=== PATIENT | female | born 1960 | race Caucasian/White ===

== ENCOUNTER → 2019-03-07 06:57 | Outpatient (CLI) | payer OTHER, SELFPAY ==
[2019-03-07 08:25] LABS: Hemoglobin A1C% w Est Avg Glu 5.6 % (4.0-6.0)
[2019-03-07 08:45] LABS: Alanine Aminotransferase 33 IU/L (9-52); Albumin 4.4 g/dL (3.5-5.0); Albumin Globulin Ratio 1.6 (1.0-2.8); Alkaline Phosphatase 89 U/L (38-126); Aspartate Aminotransferase 23 IU/L (14-36); BUN Creatinine Ratio 22.5 (6-22); Bilirubin Total 0.6 mg/dL (0.2-1.3); Blood Urea Nitrogen 18 mg/dL (7-17); Calcium 9.7 mg/dL (8.4-10.2); Carbon Dioxide 32 mmol/L (22-32); Chloride 98 mmol/L (98-107); Cholesterol 249 mg/dL (140-199); Estimated Glomerular Filt Rate > 60.0 mL/min (>60); Globulin 2.8 g/dL (1.7-4.1); Glucose 98 mg/dL (70-100); HDL Cholesterol 39 mg/dL (40-60); HEMOLYSIS < 15 (0-50); LDL Cholesterol Calculated 142 mg/dL (<100); Potassium 3.8 mmol/L (3.4-5.1); Sodium 137 mmol/L (137-145); Total Protein 7.2 g/dL (6.3-8.2); Triglycerides 342 mg/dL (35-150)
== END ==
PROVIDERS: Visit Provider Physician Assistant Medical
DX: I10 Essential (primary) hypertension (principal)
CPT/HCPCS: 36415; 80053; 80061; 83036

== ENCOUNTER → 2019-11-14 07:07 | Outpatient (CLI) | payer OTHER, SELFPAY ==
--- NOTE | 2019-11-14 | DI.US.S_ITS ---
PROCEDURE: US PELVIC COMPLETE INDICATIONS: PMB TECHNIQUE: Real-time scanning was performed of the pelvic organs, with image documentation. Additional endovaginal scanning was necessary due to incomplete visualization of the adnexal and endometrial structures by transabdominal scanning. COMPARISON: None. FINDINGS: Transabdominal scanning: Limited scanning through the kidneys shows no hydronephrosis. No pathologic free abdominal or pelvic fluid. Endovaginal scanning: Uterus: Uterus measures 6.7 x 5.1 x 8.3 cm. The endometrium measures 6 mm in combined thickness. Multiple uterine fibroids are identified. There is a 3.1 x 3.1 x 3.9 cm intramural fibroid identified in the right side of the anterior uterus. There is a 2.4 x 1.8 x 2.6 cm intramural fibroid noted over the right side of the anterior uterus. There is also a 3.9 x 3.5 x 4.2 cm intramural fibroid seen over the left side of the anterior uterus. Visualized cervix is unremarkable. Ovaries: The ovaries are not visualized on this study. IMPRESSION: 1. Mildly thickened endometrium measuring 6 mm in thickness. For this postmenopausal patient with abnormal bleeding, consider further evaluation with endometrial biopsy. 2. Multiple intrauterine fibroids with the largest measuring up to 4.2 cm in diameter. 3. Nonvisualization of the ovaries on today's study. Dictated by: Bhavik Navarro M.D. on 11/14/2019 at 22:11 Approved by: Bhavik Navarro M.D. on 11/14/2019 at 22:17
== END ==
PROVIDERS: PCP Physician Assistant Medical; Visit Provider Physician Assistant Medical
DX: N95.0 Postmenopausal bleeding (principal); D25.1 Intramural leiomyoma of uterus; R93.89 Abnormal findings on diagnostic imaging of other specified body structures
CPT/HCPCS: 76830; 76856

== ENCOUNTER → 2019-12-11 07:12 | Outpatient (CLI) | payer OTHER, SELFPAY | PROVIDERS: PCP Physician Assistant Medical; Referring Provider Physician Assistant Medical; Visit Provider Physician Assistant Medical | DX: M54.32 Sciatica, left side (principal); Z53.9 Procedure and treatment not carried out, unspecified reason ==

== ENCOUNTER → 2019-12-12 06:51 | Outpatient (CLI) | payer OTHER, SELFPAY ==
--- NOTE | 2019-12-12 | DI.MRI.S_ITS ---
PROCEDURE: MR LUMBAR SPINE WO/W CON INDICATIONS: Sciatica, left side TECHNIQUE: Noncontrast sagittal T1 spin echo and T2 fast spin echo, sagittal STIR, axial T1 and T2 fast spin echo through the lumbar spine. In cases with scoliosis, additional coronal T2 fast spin echo may be performed. After the administration of contrast, sagittal and axial T1 spin echo with fat saturation through the lumbar spine. COMPARISON: None. FINDINGS: Image quality: Excellent. Alignment and curvature: Grade 1/2 anterolisthesis of L5 on S1. Grade 1 retrolisthesis of L2 on L3, and L3 on L4. Marrow: Chronic L5 bilateral pars defects. No acute vertebral body compression fractures. No suspicious marrow enhancement. Spinal cord: Conus medullaris terminates at the L1 level. Visualized spinal cord demonstrates normal signal, without suspicious enhancement. Paraspinous soft tissues: No paravertebral masses or abnormal enhancement. L1-L2: No high-grade canal stenosis, or lateral recess narrowing. No foraminal stenoses bilaterally L2-L3: Mild central canal narrowing. Small left paracentral disc protrusion measuring 3 mm image 15/5.Partial effacement of both lateral recesses with mildly asymmetric appearance, left greater than right. Mild-moderate left and mild right foraminal stenoses. L3-L4: Mild/moderate central canal stenosis. Partial effacement of both lateral recesses with asymmetric appearance, right greater than left. Mild/moderate left foraminal narrowing with slight nerve root compression. Mild right foraminal stenosis L4-L5: Mild central canal narrowing. Partial effacement of both lateral recesses with bilaterally symmetric appearance. [id number] right foraminal stenosis with slight nerve root compression. Mild left foraminal narrowing with slight nerve root compression. L5-S1: Moderate central canal narrowing. Partial effacement of both lateral recesses with bilaterally symmetric appearance. Severe right foraminal stenosis with nerve root compression. Severe left foraminal stenosis with nerve root compression. IMPRESSION: Chronic bilateral L5 pars defects grade 1/2 anterolisthesis of L5 on S1. Severe bilateral foraminal stenoses at L5-S1. Additional diffuse lesser bilateral foraminal stenoses as detailed above by spinal level Bilateral subarticular narrowing at L2-L3 and L3-L4, mildly asymmetric left slightly greater than right at L2-L3, and left greater than right at L3-L4 level. No abnormal enhancement identified. Dictated by: Abimael Huffman M.D. on 12/12/2019 at 9:59 Approved by: Abimael Huffman M.D. on 12/12/2019 at 10:10
== END ==
PROVIDERS: PCP Physician Assistant Medical; Referring Provider Physician Assistant Medical; Visit Provider Physician Assistant Medical
DX: M54.32 Sciatica, left side (principal); M43.16 Spondylolisthesis, lumbar region; M48.061 Spinal stenosis, lumbar region without neurogenic claudication; M48.07 Spinal stenosis, lumbosacral region
CPT/HCPCS: 72158; A9579

== ENCOUNTER → 2025-07-08 15:25 | Outpatient (CLI) | payer OTHER, SELFPAY ==
--- NOTE | 2025-07-15 13:34 | DIET.OUTPTC ---
Dietary Outpatient Consult Consult Date:07/08/25 Assessment:?64 y F referred to dietitian for pre-diabetes and hypertension Presents wanting to learn more about how much carbs to eat and improving bowel movements. Started metformin 500 mg daily and experienced a change in BMs. Pt reports never feeling hungry, will feel overly full after meals sometimes. GI symptoms: constipation Diet Recall: 7am B- 2 eggs, 2 pieces turkey bhat or 2 reduced fat pork sausage OR avocado with eggs 1030-11am snack- cottage cheese 1/2 c with 1 cup canned fruit (drained and in fruit juice) noon- meal at work ex: turkey, green beans, mashed potatoes, dinner roll 3pm snack-slovenian yogurt (Ok[place] or plain) with frozen blueberries 6pm dinner-leftovers OR sandwich w deli meat and cream cheese OR salmon burger, dinners with fresh veggies and starch with butter; cooks with avocado oil and chooses lean poultry most days post dinner snack-yogurt and blueberries, crackers and cheese, or fruit (grapes/apples) bed 10pm Fluids:water or spenddrift, 1 c black coffee Wt:?11.6 kg? BMI:?37.4? Activity:not discussed at this visit Pertinent Labs:5.9% A1c Nutrition Diagnosis:? Excessive carbohydrate intake r/t food and nutrition related knowledge deficit, difficulty assessing hunger/fullness cues aeb diet recall with lunch and dinner >45 g CHO and pt reporting over eating past point of fullness Interventions:? This participant was very receptive. Provided appropriate educational handouts. Discussed the following topics: Completed intake assessment. Discussed barriers to care. HgA1c, its correlation to blood glucose numbers Plate Method, impact of macronutrients on blood sugar, meal timing, carbohydrate counting, pairing macronutrients and spreading out carbohydrates for better blood glucose management Recommended servings for carbohydrates at meals and snacks Heart health nutrition in terms of reducing saturated fats Brainstormed appropriate meal plan based on food preferences Label reading for carbs, added sugars, fiber and saturated fats Handout on higher fiber switches and amount of fiber in food Created SMART goals for patient self-care and success. Goals: -Use the hunger fullness scale to prevent over eating before and during meals/snacks - especially assessing after dinner, before night time snack -Whole grain carb for dinner starch -Portion lunch and dinners to 30-45 g CHO -Stop using butter in veggies at dinner EER:? 9-11 CHO servings/day; 30-45 g CHO at meals, 15-30 g at snacks Monitoring/Evaluations:? F/u in 1 m Electronically Signed by: Sarah White Clinical Dietitian [address] [id number]
== END ==
LOC: DIET 15:26
PROVIDERS: PCP Physician Assistant; Referring Provider Student in an Organized Health Care Education/Training Program
DX: R73.03 Prediabetes (principal); I10 Essential (primary) hypertension; Z79.84 Long term (current) use of oral hypoglycemic drugs; K59.00 Constipation, unspecified; Z68.37 Body mass index [BMI] 37.0-37.9, adult
CPT/HCPCS: 97802

== ENCOUNTER → 2025-08-11 07:10 | Outpatient (CLI) | payer OTHER, SELFPAY ==
--- NOTE | 2025-08-11 07:12 | DI.US.S_ITS ---
PROCEDURE: US PERIPH VENOUS LOW EXTREM RT INDICATIONS: R/O DVT TECHNIQUE: Real-time imaging, as well as color and pulse Doppler interrogation, were performed of the lower extremity deep veins from the inguinal ligament to the popliteal fossa, with documentation of the visualized calf veins. COMPARISON: None. FINDINGS: The common femoral, femoral, popliteal, and the visualized calf veins are normally compressible, and free of intraluminal thrombus. Color and pulse Doppler demonstrate normal phasic intraluminal flow. There is normal augmentation response to distal compression maneuver. IMPRESSION: No findings of lower extremity deep venous thrombosis. Dictated by: Bhavik Navarro M.D. on 08/11/2025 at 7:57 Approved by: Bhavik Navarro M.D. on 08/11/2025 at 7:57
== END ==
LOC: US 07:10
PROVIDERS: PCP Student in an Organized Health Care Education/Training Program; Referring Provider Student in an Organized Health Care Education/Training Program; Visit Provider Nurse Practitioner Family
DX: M79.606 Pain in leg, unspecified (principal)
CPT/HCPCS: 93971

== ENCOUNTER → 2025-08-20 13:52 | Outpatient (CLI) | payer OTHER, SELFPAY ==
--- NOTE | 2025-08-20 15:43 | DIET.OUTPTC ---
Dietary Outpatient Consult Consult Date:08/20/25 Assessment:?64 y F referred to dietitian for pre-diabetes and hypertension Reports choosing lower carb options and reducing carb portions (ex- ceron peppers over bread on sandwich, working to measure or assess CHO level at dinners). Has been working on portioning to not feel overly full after meals. Reports improvement in constipation and regular BMs again. Would like to review CHO portioning again at meals, find resources for recipes, and potential track food. Getting A1c checked [id number] per PCP. Diet Recall: 7am B- egg and bhat casserole with ~1/4 c or less of sweet potatoes 1030-11am snack- cottage cheese 1/2 c with 1 cup canned fruit (drained and in fruit juice) noon- meal at work ex: turkey, green beans, mashed potatoes, dinner roll 3pm snack-cottage cheese and avocado 6pm dinner-leftovers OR sandwich w deli meat and cream cheese OR salmon burger, dinners with fresh veggies and starch with butter; cooks with avocado oil and chooses lean poultry most days post dinner snack-yogurt and blueberries (yogurt is [place] or plain) bed 10pm- improved sleep as well- 7 hours over 6 Fluids:water 30 oz Wt:?116 kg? BMI:?37.4? Activity:not discussed at this visit; pt recently injured knee Pertinent Labs:5.9% A1c Nutrition Diagnosis:? (improving) Excessive carbohydrate intake r/t food and nutrition related knowledge deficit, difficulty assessing hunger/fullness cues aeb diet recall with lunch and dinner >45 g CHO and pt reporting over eating past point of fullness Interventions:? This participant was very receptive. Provided appropriate educational handouts. Discussed the following topics: Reviewed CHO portions and amounts Discussed strategies for assessing CHO amount in recipes and meals Provided resources for meals (ADA and eatingwell where CHO amounts are included in recipe) Hydration Goals: -Use the hunger fullness scale to prevent over eating before and during meals/snacks - especially assessing after dinner, before night time snack -Add 1 8 oz glass water 15 minutes after dinner and aim for 2 stanleys of water -Portion lunch and dinners to 30-45 g CHO -Stop using butter in veggies at dinner EER:? 9-11 CHO servings/day; 30-45 g CHO at meals, 15-30 g at snacks Monitoring/Evaluations:? F/u in 1 m (delayed f/u til Oct r/ holidays) Electronically Signed by: Sarah White Clinical Dietitian [address] [id number]
== END ==
PROVIDERS: PCP Student in an Organized Health Care Education/Training Program; Referring Provider Student in an Organized Health Care Education/Training Program
DX: R73.03 Prediabetes (principal); I10 Essential (primary) hypertension; Z68.37 Body mass index [BMI] 37.0-37.9, adult; Z71.3 Dietary counseling and surveillance
CPT/HCPCS: 97803